=== PATIENT | male | born 1970 | race Caucasian/White ===

== ENCOUNTER 2020-05-31 09:50 | Emergency (ER) | payer SELFPAY ==
[2020-05-31 09:52] VITALS: BP 175/93; PULSE 93; RESP 34; TEMP 36.9; O2SAT 98; BMI 25.4
--- NOTE | 2020-05-31 09:57 | RAD_ITS ---
STUDY: X-RAY CHEST REASON FOR EXAM: Male, 49 years old. CHEST PAIN/PRESSURE INTERMITTENTLY TECHNIQUE: Single AP portable view of the chest. COMPARISON: None. FINDINGS: EKG electrodes are seen. Hyperinflation. There is no demonstrated pleural abnormality. Normal size heart. Normal mediastinum and tim. Normal visualized pulmonary arteries. Normal visualized aortic arch and descending thoracic aorta. Normal visualized thoracic spine. Normal visualized ribs, clavicles, and shoulders. There is no demonstrated abnormality of the visualized soft tissue structures of the upper abdomen. RAD/Chest 1 View (Portable) IMPRESSION: Hyperinflation. Electronically Signed: Manas Carrasco, at 10:31 EDT , Service support ,
--- NOTE | 2020-05-31 09:58 | ED.VISSUMM ---
- ER Visit Summary Date of Service: 05/31/20 Chief Complaint: Chest tightness History of Present Illness: The patient is a 49 M who presents with chest. He states he has had this intermittently for the past couple weeks. Sometimes at work or at home he feels tightness in his chest. His heart races and he feels dizzy. He also feels short of breath. Denies any significant cough. No fevers. He states he has felt anxious at times due to multiple reasons including wearing a mask all the time. EMS was called today and he was given aspirin. His only cardiac risk factor is smoking. He takes no medications at home. He has never had any heart issues in the past. He has no diagnosis of anxiety. Physical Examination: Vital signs reviewed. He does have an increased respiratory rate. HEENT exam unremarkable. Heart is regular rate and rhythm without murmurs. Lungs are clear to auscultation. Abdomen is soft and nontender. Extremities reveal no edema. Peripheral pulses are equal. Skin exam normal. Neurologic exam normal. He does seem mildly anxious on examination and has a little bit of tachypnea. Test Results: EKG is sinus rhythm with rate of 90. PACs noted. No ischemic changes. Laboratory studies are normal except glucose of 117. Chest x-ray shows hyperinflation but no other acute findings Emergency Department Course and Treatment: When I evaluated the patient his heart rate was in the high 80s. He is PE RC negative. I believe that his symptoms are all due to anxiety. I gave him a dose of Vistaril here. Upon reevaluation his anxiety is gone. He states that his pain is gone. He feels much better. Again I believe this is likely some anxiety causing some of his issues. He states that he did not like working with somebody he was working with today. His parents have been moving in his living situation is tenuous. This I will give some anxiety at home. I feel he can be discharged to home with follow-up. I will give him a prescription for Vistaril to take as needed. Treatment Plan: [] Disposition: Discharge Impression: Chest pain, anxiety This note was generated with [employer] dictation software. It may contain incorrect words, spelling, and punctuation that were not noted in review of the chart prior to signing ED Disposition - Plan for ED Patient: Disposition: Home or Assisted Living Instructions: ED Chest Pain NonCardiac Prescriptions: hydrOXYzine pamoate capsule [Vistaril] 25 mg PO TID PRN PRN #20 cap PRN Reason: Anxiety Prescription Printed Referrals: Care Physician,No Primary [Primary Care Provider] - Malinda Franco MD [STAFF PHYSICIAN] -
[2020-05-31 10:03] VITALS: PULSE 86; RESP 22; O2SAT 97
[2020-05-31 10:04] LABS: Absolute Neutrophil Count 6.4 X10^3/uL (2.0-7.7); Basophil# 0.04 X10^3/uL; Basophil% 0.4 % (0-1); Eosinophil# 0.06 X10^3/uL; Eosinophils% 0.6 % (0-5); Hematocrit 44.8 % (40-54); Hemoglobin 15.6 g/dL (13.0-16.5); Lymphocyte % 23.2 % (19-41); Mean Corp Hgb Conc 34.8 g/dL (32-36); Mean Corpuscular Hgb 33.1 pg (27.0-32.0); Mean Corpuscular Volume 94.9 fL (80-94); Monocyte# 0.76 X10^3/uL; NRBC Flagged by Analyzer 0 % (0-5); Neutrophil # 6.37 X10^3/uL (2.7-7.7); Neutrophil % 67.4 % (47-70); Platelet Count 218 K/mm3 (150-450); RBC Distribution Width CV 12.4 % (11.6-14.6); RBC Distribution Width SD 43.3 fl (35.1-43.9); Red Blood Count 4.72 M/mm3 (4.6-6.2); White Blood Count 9.5 K/mm3 (4.4-11.0)
[2020-05-31] MEDS: hydrOXYzine PAM 25 MG Capsule PO (10:10)
[2020-05-31 10:20] LABS: Anion Gap 9 (5-15); BUN 11 mg/dL (7-18); BUN/Creat Ratio 11.4 RATIO (10-20); Calcium,Total 9.4 mg/dL (8.5-10.1); Chloride 107 mmol/L (98-107); Creatinine, Serum 0.97 mg/dL (0.70-1.30); EST Glomerular Filtration Rate 87 mL/min (>60); Est Glom Filt Rate - Afr Amer 105 mL/min (>60); Estimated Creatinine Clearance 85.18 ml/min; Glucose 117 mg/dL (74-106); Potassium 3.5 mmol/L (3.5-5.1); Sodium Level 138 mmol/L (136-145)
[2020-05-31 11:02] VITALS: BP 158/93; PULSE 74; RESP 19; O2SAT 94
== END 2020-05-31 11:06 | disposition home or self-care (01) ==
PROVIDERS: Emergency Provider Emergency Medicine
DX: R07.89 Other chest pain (principal); F41.9 Anxiety disorder, unspecified
CPT/HCPCS: 71045; 80048; 84484; 85025; 93005; 99285; A4216